=== PATIENT | male | born 1940 | race Two or more races ===

== ENCOUNTER 2025-09-28 11:11 | Emergency (ER) | payer MEDICARE, BC, SELFPAY ==
[2025-09-28 11:15] VITALS: BP 120/67; PULSE 82; RESP 18; TEMP 36.6; O2SAT 96
[2025-09-28 11:16] VITALS: PULSE 82; RESP 16; O2SAT 98; BMI 20.9
--- NOTE | 2025-09-28 11:25 | EKG_ITS ---
[facility] Test Date: 2025-09-28 Pat Name: SHANTA INIGUEZ Department: Room: - Gender: Male [employer]: : 1940 Requested By: Forrest Chairez Order Number: [id number] Reading MD: Forrest Chairez Measurements Intervals Canones Rate: 76 P: 16 LA: 139 QRS: -17 QRSD: 95 T: 28 QT: 369 QTc: 417 Interpretive Statements SINUS RHYTHM WITH OCCASIONAL SUPRAVENTRICULAR PREMATURE COMPLEXES VOLTAGE CRITERIA FOR LVH [MEETS CRITERIA IN ONE OF: R(aVL), S(V1), R(V5), R(V5/V6)+S(V1)] No previous ECG available for comparison /store/S0/[id number].pdf
--- NOTE | 2025-09-28 11:25 | XR_ITS ---
CLINICAL INDICATION: Rule out aspiration TECHNIQUE: XR chest 1V Exam date and time: 09/28/2025 at 12:47 p.m. COMPARISON: 10/04/2013 FINDINGS: The cardiomediastinal silhouette is within normal limits of size. Aortic arch atherosclerosis is present.. Very mild streaky attenuation is present at the left lung base. No lobar or segmental consolidation. No mass. No pleural effusion or pneumothorax. No acute osseous abnormality detected. 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 Mild convex right spinal curvature could be positional in etiology. IMPRESSION: Very mild streaky attenuation at the left lung base could be due to very mild aspiration or potentially subsegmental atelectasis. No lobar or segmental consolidation. - This report was generated utilizing speech recognition software. -
--- NOTE | 2025-09-28 11:25 | XR_ITS ---
Examination: CT brain head without contrast. 2-D sagittal coronal reconstructions Date and time of exam: 09/28/2025 at 12:41 p.m. INDICATION: Seizure like activity today COMPARISON: Head CT 11/28/2021 CTDI: vol (mGy): 52.7 DLP: (mGycm): 1042 Technique: Multiple CT axial sections of the brain have been obtained, 5 mm slice thickness. Contrast has not been administered. 2-D sagittal, coronal reconstructions have been obtained Low dose protocols were performed. One or more of the following dose reduction techniques were used; automated exposure control, adjustment of the mA and/or KV according to patient size, use of iterative reconstruction technique. FINDINGS: BRAIN PARENCHYMA: No evidence for acute large vessel transcortical ischemic infarction, hemorrhage, mass, or midline shift. Global cerebral involutional changes are present. Nonspecific cerebral white matter hypoattenuation most likely represents sequela of chronic ischemic microangiopathy in this age demographic. No cerebellar tonsillar ectopia. No apparent acute abnormality of the cerebellum. VENTRICLES / EXTRA-AXIAL SPACES: No hydrocephalus, extra-axial hematoma or mass. Bilateral ICA and vertebral calcifications noted. CALVARIUM: No skull fracture or concerning focal lesion. SINUSES: No significant opacification of the paranasal sinuses. The visualized mastoid air cells are clear. OTHER EXTRACRANIAL STRUCTURES: No findings of acute significance. Sequela of ocular lens replacement surgery noted. IMPRESSION: Negative noncontrast head CT for acute intracranial abnormality. No significant interval change since the comparison study.
--- NOTE | 2025-09-28 11:26 | PD.EDSEIZ ---
ED Seizures RME/HPI General Chief Complaint: Seizure Stated Complaint: SEIZURE Time Seen by Provider: 09/28/25 11:15 Arrival date/time: 09/28/25 11:11 84-year-old male patient with significant history of Parkinson disease, TIA, was brought in by EMS for evaluation regarding possible seizure attack. According to the EMS, patient is having spasm looks like having a seizure lasting for 20 seconds, since 6:00 this morning, at least 7 times already. There was no postictal confusion noted. On my initial evaluation patient is alert and oriented, told me that nothing wrong with him. Patient denies any cough denies any chest pain denies any abdominal pain no diarrhea no constipation patient is wearing diaper. No fever noted. Related Data Home Medications ?Medication ?Instructions ?Recorded ?Confirmed amantadine HCl 100 mg capsule 100 mg PO BID 11/28/21 01/15/22 carbidopa 25 mg-levodopa 250 mg 1 tab PO QID 11/28/21 01/15/22 tablet entacapone 200 mg tablet 200 mg PO QID 11/28/21 01/15/22 aspirin 81 mg tablet,delayed 81 mg PO QDAY 01/15/22 01/15/22 release Previous Rx's ?Medication ?Instructions ?Recorded cefuroxime axetil 500 mg tablet 500 mg PO BID #14 tabs 09/28/25 Allergies Allergy/AdvReac Type Severity Reaction Status Date / Time codeine Allergy Intermediate Vomiting Verified 09/28/25 11:30 Review of Systems Review of Systems Narrative Review of Systems: Review of system reviewed and within normal limits except mentioned in HPI ED Exam Narrative Physical exam: VITAL SIGNS: Reviewed. GENERAL APPEARANCE: Alert and interactive, follows commands, no acute distress, HEAD AND FACE: Non-traumatic. ENT: PERRL, pink conjunctivitis, eyelid no trauma, Mucous membrane moist. NECK: Supple, nontender, no nuchal rigidity. CHEST: No tenderness, no crepitus, no paradoxical movement, no retractions. LUNGS: Clear, well ventilated, symmetric, no rales, no wheezing, no ronchi, no stridor, good breath sounds bilaterally. HEART: Regular rate, regular rhythm, no murmur, no gallops. ABDOMEN: Soft, positive bowel sounds, nondistended, no guarding, nontender, no rebound, no masses, RECTAL: Deferred. GENITAL: Deferred. NEUROLOGICAL: Gross motor function intact sensory function intact, Appropriate for age. MUSCULOSKELETAL: low back nontender, full range of motion. EXTREMITIES: Nontender, full range of motion. SKIN: Color pink, dry, no rash, no lacerations, no abrasions, no contusions. LYMPHATICS: Deferred. Course Quality Measures none Orders Category Date Time Status EKG (ED ONLY) *Do not use* NOW Care 09/28/25 11:25 Completed In and Out Catheter X1 Care 09/28/25 11:[address] head/brain wo con Stat Exams 09/28/25 11:25 Completed EKG (ED Only) Stat Exams 09/28/25 11:25 Draft XR chest 1V Stat Exams 09/28/25 11:25 Completed C-Reactive Protein Stat Lab 09/28/25 11:20 Completed CBC Stat Lab 09/28/25 11:20 Completed Comprehensive Metabolic Panel Stat Lab 09/28/25 11:20 Completed Lactate (Lactic Acid) Stat Lab 09/28/25 11:20 Completed Partial Thromboplastin Time Stat Lab 09/28/25 11:20 Completed Procalcitonin Stat Lab 09/28/25 11:20 Completed Troponin I Stat Lab 09/28/25 11:20 Completed UA, C/S IF [Urinalysis, C/S if Indicated] Stat Lab 09/28/25 13:08 Completed Urine Culture Stat Lab 09/28/25 13:08 Received Ringers Lactated 1000 ml [Lactated Ringers] 1,000 ml Med 09/28/25 11:40 Discontinued IV 999 mls/hr cefTRIAXone/D5w 1gm IV premix [Rocephin/D5w 1gm IV Med 09/28/25 14:30 Discontinued premix] 1 gm in 50 ml IV X1 Vital Signs Vital signs: Vital Signs Temperature 97.8 F 09/28/25 11:15 Pulse Rate 82 09/28/25 11:15 Respiratory Rate 18 09/28/25 11:15 Blood Pressure 120/67 09/28/25 11:15 Pulse Oximetry (%) 96 09/28/25 11:15 Oxygen Delivery Method Nasal Cannula 09/28/25 11:15 Oxygen Flow Rate 1 09/28/25 11:15 Seizure MDM Narrative MDM Narrative:: 84-year-old male patient with significant history of Parkinson disease, TIA, was brought in by EMS for evaluation regarding possible seizure attack. According to the EMS, patient is having spasm looks like having a seizure lasting for 20 seconds, since 6:00 this morning, at least 7 times already. There was no postictal confusion noted. On my initial evaluation patient is alert and oriented, told me that nothing wrong with him. Patient denies any cough denies any chest pain denies any abdominal pain no diarrhea no constipation patient is wearing diaper. No fever noted. Patient's workup today including CT scan of the head came back unremarkable except for UTI. Patient received IV fluids, suppression IV. No recurrence of spasms like seizure-like activity noted in the emergency room. I do not believe patient is having seizure at this time. Advised them to follow-up closely with PCP. I will send this patient home on cefuroxime for UTI. Patient data External records reviewed:: None Clinical information provided by:: none Social determinants that could affect healthcare access:: none Patient has the following chronic illnesses:: None How is presenting disease/condition affected by chronic disease/condition?: no chronic disease Evaluation data The following diagnostics were reviewed and interpreted by me:: lab results, radiology exam(s) and EKG tracing(s) Lab and/or radiology exams considered but not ordered:: None Interpretation Summary: See results MDM EKG showed sinus rhythm, ventricular rate of 77 bpm, LA interval of 145 MS, no ST segment elevation or depression noted. Medications / Prescriptions Medications or Prescriptions considered but not ordered:: None Medication administrations:: Medication Administration History Discontinued Medications Lactated Ringer's (Lactated Ringers) 1,000 mls @ 999 mls/hr IV .Q1H1M ONE Stop: 09/28/25 12:40 Last Infusion: 09/28/25 14:15 Dose: Infused Documented By: Admin: 09/28/25 12:58 Dose: 999 mls/hr Documented By: GENESIS Ceftriaxone Sodium/Dextrose (Rocephin/D5w 1gm Iv Premix) 1 gm in 50 mls @ 100 mls/hr IV X1 ONE Stop: 09/28/25 14:59 Last Admin: 09/28/25 14:42 Dose: 100 mls/hr Documented By: MARS Ceftriaxone, IV fluids Consultations Consultation(s) initiated? (list below): No Diagnosis Seizure Differential Diagnosis: focal seizure, generalized seizure and other (UTI,) Most likely diagnosis given after review of the tests above:: UTI, history of Parkinson disease. Admission Indicated Admission indicated?: not indicated Admission Request Was there a request for admission?: No Disposition Plan Disposition Plan: Discharge Discharge Attestation Discharge Attestation: The patient and all family members were given an opportunity to ask questions and understood the discharge instructions. Discharge instructions specifically effects, indications for sooner follow up or return to the emergency department, and the expected course of current diagnosis. Patient condition: Stable Discharge Plan Plan Patient Disposition: HOME (Self Care) Discharge Disposition comment: Stable Prescriptions/Referrals Prescriptions/Med Rec: New cefuroxime axetil 500 mg tablet 500 mg PO BID Qty: 14 0RF No Action aspirin 81 mg tablet,delayed release (DR/EC) 81 mg PO QDAY carbidopa-levodopa 25-250 mg Tablet 1 tab PO QID amantadine HCl 100 mg Capsule 100 mg PO BID entacapone 200 mg Tablet 200 mg PO QID Referrals: Kwaku Whitley MD [Primary Care Provider, Family Practice] - In 1 week Problem List Clinical Impression: Urinary tract infection Patient/Caregiver Discharge Instructions Discharge Activity: activity as tolerated Education Materials: ED Bladder Infection, Male (Adult) Additional Instructions: Thank you for the opportunity for serving you today. You are stable for discharged . You are advised to: Follow-up with your PCP in 1 to 2 days Return to ED for worsening of symptoms Increase oral fluids Take medication as prescribed Print Language: Tajik Stand Alone Forms: Elyssa Award Info., Patient Portal Info Letter FALGUNI/MARILIN Supervising Physician COURTNEY Supervising Physician: MD Gabriella
[2025-09-28 11:32] VITALS: BP 143/68; PULSE 78; RESP 17; TEMP 36.4; O2SAT 98
[2025-09-28 11:33] LABS: Lactate (Lactic Acid) 1.8 mMol/L (0.4-2.0)
[2025-09-28 11:40] LABS: Basophils # (Auto) 0.0 Thou/mm3 (0.0-0.2); Basophils % (Auto) 0 % (0-2.5); Eosinophils # (Auto) 0.0 Thou/mm3 (0.0-0.5); Eosinophils % (Auto) 0 % (0-10); Hematocrit 33.0 % (41.0-53.0); Hemoglobin 11.4 g/dL (13.5-16.0); Immature Granulocytes Auto 0.06 Thou/mm3 (0.00-0.00); Lymphocytes # (Auto) 0.9 Thou/mm3 (1.0-4.8); Lymphocytes % (Auto) 8 % (10-50); Mean Corpuscular HGB Conc 34.5 g/dl (31.0-37.0); Mean Corpuscular Hemoglobin 31.4 pg (25.0-35.0); Mean Corpuscular Volume 91 fL (80-100); Monocytes # (Auto) 0.6 Thou/mm3 (0.0-0.8); Monocytes % (Auto) 6 % (0-12); Neutrophils # (Auto) 9.1 Thou/mm3 (1.8-7.7); Neutrophils % (Auto) 85 % (37-80); Nucleated Red Blood Cell # 0.00 Thou/mm3 (0.00-0.00); Nucleated Red Blood Cell % 0 /100 WBC (0); Platelet Count 215 Thou/mm3 (140-440); RDW Standard Deviation 42.9 fL (35.1-43.9); Red Blood Count 3.63 Miln/mm3 (4.50-5.90); White Blood Count 10.8 Thou/mm3 (3.8-10.6)
[2025-09-28 11:56] LABS: Partial Thromboplastin Time 24.2 Seconds (22.0-36.0)
[2025-09-28 12:22] LABS: Alanine Aminotransferase < 7 U/L (10-49); Albumin, Serum 3.9 gm/dL (3.4-4.8); Albumin/Globulin Ratio 1.7 (1.2-2.2); Alkaline Phosphatase 85 U/L (46-116); Anion Gap 2 (7-16); Aspartate Amino Transferase 17 U/L (0-34); BUN/Creatinine Ratio 18 Ratio (12-20); Bilirubin,Total 0.7 mg/dL (0.3-1.2); Blood Urea Nitrogen 33 mg/dL (9-23); C-Reactive Protein < 0.5 mg/dL (0.0-0.9); Calcium 8.9 mg/dL (8.3-10.6); Calcium (Corrected) 9.0 mg/dL (8.5-10.1); Carbon Dioxide 27.8 mMol/L (20.0-31.0); Chloride 109 mMol/L (98-107); Creatinine (Component) 1.8 mg/dL (0.6-1.3); Estimated Creatinine Clearance 30.4 mL/min (>60); Globulin 2.3 gm/dL (2.3-3.5); Glucose 141 mg/dL (74-106); Osmolality,Calculated 286 (275-295); Potassium 4.2 mMol/L (3.4-5.1); Procalcitonin 0.06 ng/ml (0.0-0.49); Sodium 139 mMol/L (136-145); Total Protein 6.2 gm/dL (5.7-8.2); Troponin I 0.022 ng/mL (0.0-0.045); eGFR 37 See Note
[2025-09-28 12:29] VITALS: BP 149/75; PULSE 78; RESP 15; TEMP 36.9; O2SAT 95
[2025-09-28] MEDS: RINGERS LACTATED 1000 ML 1,000 ML 999 ML IV (12:58)
[2025-09-28 13:24] LABS: Collection Type, Urine Clean Catch
[2025-09-28 13:28] LABS: Bilirubin,Urine Negative (Negative); Blood,Urine Negative (Negative); Clarity,Urine Clear (Clear/Hazy); Color,Urine Drk-Yellow (Lt Yel-Yel); Glucose, Urine Negative (Negative); Ketones,Urine Trace (Negative); Leukocyte Esterase,Urine Positive (Negative); Nitrite,Urine Negative (Negative); PH,Urine 6.0 (5.0-7.0); Protein,Urine Trace (Neg - Trace); RBC,Urine 6 /hpf (0-3); Specific Gravity,Urine 1.022 (1.001-1.035); Squamous Epithelial Cell,Urine 3 /hpf (0-5); Urobilinogen,Urine Negative mg/dL (0.0-1.0); WBC,Urine 20 /hpf (0-5)
[2025-09-28 13:30] LABS: Culture Indicated,Urine Yes
[2025-09-28 14:00] VITALS: BP 169/96; PULSE 75; RESP 17; TEMP 36.9; O2SAT 100
[2025-09-28] MEDS: cefTRIAXone/D5w 1gm IV premix 1 GM/50 ML BAG IV (14:42)
[2025-09-28 15:13] VITALS: BP 166/92; PULSE 81; RESP 16; TEMP 36.8; O2SAT 99
== END 2025-09-28 15:43 | disposition home or self-care (01) ==
PROVIDERS: Nurse Practitioner Family; Emergency Provider Family Medicine; PCP Family Medicine
DX: N39.0 Urinary tract infection, site not specified (principal); G20.A1 Parkinson's disease without dyskinesia, without mention of fluctuations; Z86.73 Personal history of transient ischemic attack (TIA), and cerebral infarction without residual deficits
CPT/HCPCS: 36415; 51701; 70450; 71045; 80053; 81001; 83605; 84145; 84484; 85025; 85730; 86140; 87086; 93005; 96361; 96365; 99284; J0696; J7120